=== PATIENT | female | born 1955 | race Asian ===

== ENCOUNTER 2018-05-03 09:21 | Inpatient (IN) | payer OTHER ==
[~2018-05-03] VITALS: Ht 160 cm; Wt 74.8 kg
--- NOTE | 2018-05-03 09:21 | NUR ---
PT TAKEN BY WHEELCHAIR TO BED 2
[2018-05-03 09:28] VITALS: BP 183/112
--- NOTE | 2018-05-03 09:30 | NUR ---
62F BIB WHEELCHAIR ASSISTED FROM CAR WITH WITH C/O C/O N/V/D X LAST NIGHT; AWOKE TODAY WITH 10/10 RIGHT FLANK PAIN RADIATING RIGHT LOWER QUADRANT; DENIES DYSURIA; PT IS AOX4 TO PERSON, PLACE, SITUATION, TIME, AND PLACE. RR ARE TACHYPNEIC AND UNLABORED. PT CHANGED INTO GOWN. AWAITING ER MD GONZALEZ. WILL CONTINUE TO MONITOR. UA CUP BY BEDSIDE. PT AWARE OF NEED OF URINE SAMPLE.
[2018-05-03] MEDS ORDERED: NACL 0.9% 500 ML IV ONE (09:54)
[2018-05-03] MEDS ORDERED: ONDANSETRON 4 MG/2 ML VIAL IVP ONE (09:55)
[2018-05-03] MEDS ORDERED: KETOROLAC 30 MG/ML VIAL IVP ONE (09:55)
[2018-05-03 10:19] LABS: BASOPHILS % (AUTO) 0.2 % (0.0-2.0); EOSINOPHILS % (AUTO) 0.3 % (0.0-4.0); HEMATOCRIT 48.6 % (36-48); LYMPHOCYTES % (AUTO) 10.1 % (20.5-51.1); MEAN CORPUSCULAR HEMOGLOBIN 28 pg (27-31); MEAN CORPUSCULAR HGB CONC 33 g/dL (33-37); MEAN CORPUSCULAR VOLUME 83.9 fL (80-94); MONOCYTES # (AUTO) 0.3 K/uL (0.8-1.0); MONOCYTES % (AUTO) 2.8 % (1.7-9.3); NEUTROPHILS # (AUTO) 8.7 K/uL (1.8-7.7); NEUTROPHILS % (AUTO) 86.6 % (42.2-75.2); PLATELET COUNT (AUTO) 218 K/uL (140-450); RED BLOOD CELL COUNT(AUTO) 5.79 MIL/uL (4.20-5.40); RED CELL DISTRIBUTION WIDTH 13.5 % (11.6-13.7); WHITE BLOOD COUNT (AUTO) 10.1 K/uL (4.8-10.8)
--- NOTE | 2018-05-03 10:23 | NUR ---
PT TAKEN TO CT IN [facility]
--- NOTE | 2018-05-03 10:33 | NUR ---
pt returned from ct via gurney accompanied by interventional radiology rn; returned to rm 2 without incident
[2018-05-03 10:41] LABS: ANION GAP 15.6 (8-16); CARBON DIOXIDE 26.1 mmol/L (21-32); CREATININE 1.1 mg/dL (0.6-1.3); POTASSIUM 3.7 mmol/L (3.5-5.1)
[2018-05-03 10:52] LABS: ALBUMIN 4.2 g/dL (3.4-5.0); TOTAL BILIRUBIN 0.8 mg/dL (0.0-1.0)
--- NOTE | 2018-05-03 11:32 | NUR ---
patient resting with eyes closed; vss; nad
[2018-05-03] MEDS ORDERED: LISI-420 PO (11:55)
[2018-05-03] MEDS ORDERED: ASPI81CT89 PO (11:55)
[2018-05-03] MEDS ORDERED: SIMV40TA1 PO (11:55)
[2018-05-03] MEDS ORDERED: METF850T PO (11:55)
[2018-05-03] MEDS ORDERED: MORPHINE SULFATE 2 MG/ML SYR IVP ONE (12:00)
--- NOTE | 2018-05-03 12:01 | NUR ---
Pt with no complaints. VSS. NAD
[2018-05-03] MEDS: NACL 0.9% 1,000 ML IV SCH ×2 (12:19→22:19)
[2018-05-03] MEDS ORDERED: HYDROcodone/APAP 5/325 MG 1 TAB TAB PO PRN (12:20)
[2018-05-03] MEDS ORDERED: ONDANSETRON 4 MG/2 ML VIAL IVP PRN (12:20)
[2018-05-03] MEDS ORDERED: MORPHINE SULFATE 4 MG/ML SYR IVP PRN (12:20)
[2018-05-03] MEDS ORDERED: INSULIN LISPRO SLIDING SCALE 100 UNITS/ML VIAL SUBQ PRN (12:20)
[2018-05-03] MEDS ORDERED: DEXTROSE 50% 50 ML SYR IVP PRN (12:20)
[2018-05-03 12:41] LABS: APPEARANCE,URINE HAZY (CLEAR); BILIRUBIN,URINE NEGATIVE (NEGATIVE); BLOOD, URINE 3+ (NEGATIVE); COLOR,URINE GREEN (YELLOW); LEUKOCYTE ESTERASE ,URINE NEGATIVE (NEGATIVE); NITRITE, URINE NEGATIVE (NEGATIVE); UGLUCOSE 1+ (NEGATIVE)
[2018-05-03 13:04] LABS: RBC,URINE 20-50 /HPF (0-5); WBC,URINE NONE SEEN /HPF (0-5)
[2018-05-03 13:05] LABS: URIC ACID CRYSTALS,URINE 0-10 /HPF (None Seen); YEAST,URINE Moderate /HPF (None Seen)
--- NOTE | 2018-05-03 13:25 | NUR ---
Patient will be admitted to [facility]. Admited to Tele. Will go to room 111A. Belongings list completed. Report to Masha HAWKINS.
--- NOTE | 2018-05-03 13:40 | NUR ---
RECEIVED PT ON UNIT VIA [facility], PT IS AMBULATORY, AAOX4, IV IS ON THE LEFT AC, PATENT, INTACT, FLUSHING WELL, NO S/S OF RESPIRATORY DISTRESS OR DISCOMFORT NOTED, DISCUSSED PLAN OF CARE WITH PT, PT VERBALIZED UNDERSTANDING, CALL LIGHT IS WITHIN REACH, WILL CONTINUE TO MONITOR.
[2018-05-03 16:00] VITALS: BP 112/71
[2018-05-03] MEDS: KETOROLAC 30 MG/ML VIAL IVP PRN (16:22)
[2018-05-03] MEDS: BLOOD GLUCOSE MONITORING 1 DEV DEV FS SCH ×2 (16:26→21:00)
[2018-05-03] MEDS ORDERED: TAMSULOSIN 0.4 MG CAP PO SCH (16:57)
--- NOTE | 2018-05-03 19:25 | NUR ---
ENDORSED PT TO GEOTHERMAL INSTALLER NURSE FOR CONTINUITY OF CARE. PT STABLE AT THIS TIME.
--- NOTE | 2018-05-03 19:26 | NUR ---
RECEIVED REPORT FROM DAYSHIFT NURSE AT BEDSIDE FOR CONTINUITY OF CARE. PT AAOX4. PT IV NOTED LAC 20G NS 100ML/HR. NO SOB NO S/S OF DISTRESS PT IS AMBULATORY. SKIN INTACT. BED LOWERED CALL LIGHT WITHIN REACH WILL CONTINUE TO MONITOR.
--- NOTE | 2018-05-03 21:00 | NUR ---
PT BG IS 185 PT IS AWARE SHE NEEDED INSULIN COVERAGE BUT PT REFUSED INSULIN. WILL CONTINUE TO MONITOR.
[2018-05-04] VITALS: BP 105/57
[2018-05-04] MEDS: KETOROLAC 30 MG/ML VIAL IVP PRN ×2 (02:09→08:43)
[2018-05-04] MEDS: BLOOD GLUCOSE MONITORING 1 DEV DEV FS SCH (05:25)
--- NOTE | 2018-05-04 05:57 | NUR ---
BG 175, INSULIN COVERAGE NEEDED BUT PT REFUSED. WILL CONTINUE TO MONITOR.
--- NOTE | 2018-05-04 06:24 | NUR ---
PT GIVEN NORCO 1HR AGO. PT SLEEPING WILL CONTINUE TO MONITOR.
[2018-05-04 07:10] LABS: BASOPHILS % (AUTO) 0.5 % (0.0-2.0); EOSINOPHILS % (AUTO) 0.7 % (0.0-4.0); HEMATOCRIT 43.5 % (36-48); HEMOGLOBIN 14.1 g/dL (12.0-16.0); LYMPHOCYTES # (AUTO) 1.3 K/uL (2.5-16.5); LYMPHOCYTES % (AUTO) 24.3 % (20.5-51.1); MEAN CORPUSCULAR HEMOGLOBIN 28 pg (27-31); MEAN CORPUSCULAR HGB CONC 32 g/dL (33-37); MEAN CORPUSCULAR VOLUME 85.4 fL (80-94); MONOCYTES # (AUTO) 0.6 K/uL (0.8-1.0); MONOCYTES % (AUTO) 11.1 % (1.7-9.3); NEUTROPHILS # (AUTO) 3.5 K/uL (1.8-7.7); NEUTROPHILS % (AUTO) 63.4 % (42.2-75.2); PLATELET COUNT (AUTO) 187 K/uL (140-450); RED BLOOD CELL COUNT(AUTO) 5.09 MIL/uL (4.20-5.40); RED CELL DISTRIBUTION WIDTH 13.5 % (11.6-13.7); WHITE BLOOD COUNT (AUTO) 5.5 K/uL (4.8-10.8)
[2018-05-04 07:21] LABS: ANION GAP 10.9 (8-16); CARBON DIOXIDE 26.7 mmol/L (21-32); CREATININE 1.2 mg/dL (0.6-1.3); POTASSIUM 3.6 mmol/L (3.5-5.1)
--- NOTE | 2018-05-04 07:29 | NUR ---
ENDORSED REPORT TO DAYSHIFT NURSE AT BEDSIDE FOR CONTINUITY OF CARE.
--- NOTE | 2018-05-04 07:30 | NUR ---
RECEIVED REPORT FROM FILLING OPERATOR NURSE, PT IS AMBULATORY, AAOX4, IV IS ON THE LEFT AC, PATENT, INTACT, FLUSHING WELL, NO S/S OF RESPIRATORY DISTRESS OR DISCOMFORT NOTED, DISCUSSED PLAN OF CARE WITH PT, PT VERBALIZED UNDERSTANDING, CALL LIGHT IS WITHIN REACH, WILL CONTINUE TO MONITOR.
[2018-05-04 08:00] VITALS: BP 100/53
[2018-05-04] MEDS: NACL 0.9% 1,000 ML IV SCH (08:19)
[2018-05-04] MEDS ORDERED: TAMSULOSIN 0.4 MG CAP PO SCH (08:30)
[2018-05-04] MEDS ORDERED: TAMS0.4C96 PO (08:43)
[2018-05-04] MEDS ORDERED: ACET-9525 PO (08:43)
--- NOTE | 2018-05-04 08:43 | NUR ---
DUE MEDICATIONS GIVEN, PT TOLERATED WELL, CALL LIGHT WITHIN REACH, WILL CONTINUE TO MONITOR.
[2018-05-04] MEDS ORDERED: LISINOPRIL 20 MG TAB PO SCH (09:00)
[2018-05-04] MEDS ORDERED: PANTOPRAZOLE 40 MG INJ VIAL IVP SCH (09:00)
[2018-05-04] MEDS ORDERED: ENOXAPARIN 40 MG/0.4 ML SYR SUBQ SCH (09:00)
--- NOTE | 2018-05-04 09:10 | NUR ---
PATIENT HAS BEEN SCREENED AND CATEGORIZED MODERATE NUTRITION RISK. PATIENT WILL BE SEEN WITHIN 3-5 DAYS OF ADMISSION. 04/05/18 04/07/[address]
--- NOTE | 2018-05-04 11:00 | NUR ---
DISCHARGE INSTRUCTIONS GIVEN, IV REMOVED, CATHETER TIP INTACT, ID WRIST BAND REMOVED. PT STABLE UPON DISCHARGE ACCOMPANIED BY HER .
--- NOTE | 2018-05-05 07:33 | NUR ---
RETRO FAXED ER REPORT, H&P, DISCHARGE INSTRUCTION TO [facility] [phone]. NO DISCHARGE SUMMARY.
== END 2018-05-04 11:00 | disposition home or self-care (01) | DRG 465 ==
LOC: MED 09:21 → MTU 12:24
PROVIDERS: ADMIT Internal Medicine; ATTEND Internal Medicine
DX: N13.2 Hydronephrosis with renal and ureteral calculous obstruction (principal); I10 Essential (primary) hypertension; K52.9 Noninfective gastroenteritis and colitis, unspecified; E11.9 Type 2 diabetes mellitus without complications; E66.9 Obesity, unspecified; Z68.29 Body mass index [BMI] 29.0-29.9, adult; Z82.49 Family history of ischemic heart disease and other diseases of the circulatory system
CPT/HCPCS: 36415; 74018; 80048; 80053; 81001; 82948; 83690; 85025; 87081; 96361; 96374; 96375; 99285; C9113; J1815; J1885; J2270; J2405; J7030; Q0092

== ENCOUNTER 2020-12-18 07:02 | Day surgery (SDC) | payer OTHER, SELFPAY ==
[~2020-12-18] VITALS: Ht 160 cm; Wt 77.1 kg
[~2020-12-18 07:02] MED LIST: ACET-9525 PO; ASPI-1822 PO; LISI-487 PO; METF850T PO; SIMV40TA1 PO; TAMS0.4C96 PO
[2020-12-18] MEDS ORDERED: diphenhydrAMINE 50 MG/ML VIAL ONE (08:55)
[2020-12-18] MEDS ORDERED: fentaNYL citrate 0.05 MG/ML VIAL ONE (08:55)
[2020-12-18] MEDS ORDERED: LIDOCAINE 2% 100 MG/5 ML UJET TP ONE ×2 (08:55→09:40)
[2020-12-18] MEDS ORDERED: MIDAZOLAM 5 MG/5 ML VIAL ONE (08:55)
[2020-12-18] MEDS ORDERED: MIDAZOLAM 2 MG/2 ML VIAL IVP ONE (09:40)
[2020-12-18] MEDS ORDERED: fentaNYL citrate 0.05 MG/ML VIAL IVP ONE (09:40)
== END 2020-12-18 10:20 | disposition home or self-care (01) ==
LOC: MDS 07:02 → MMU 07:03 → MDS 10:20
PROVIDERS: ATTEND Internal Medicine Gastroenterology
DX: Z12.11 Encounter for screening for malignant neoplasm of colon (principal); D12.2 Benign neoplasm of ascending colon; D12.5 Benign neoplasm of sigmoid colon; E11.9 Type 2 diabetes mellitus without complications; Z79.82 Long term (current) use of aspirin; Z79.899 Other long term (current) drug therapy; Z20.828 Contact with and (suspected) exposure to other viral communicable diseases
CPT/HCPCS: 45380; 45385; 88305; J2250; J3010; U0003; J1200